=== PATIENT | female | born 1975 | race Caucasian/White ===

== ENCOUNTER 2017-07-14 13:48 | Emergency (ER) | payer OTHER ==
[2017-07-14 13:54] VITALS: BP 133/76; PULSE 93; TEMP 98.8; BMI 25.0
[2017-07-14] MEDS ORDERED: IBUPROFEN 400 MG TABLET (FP) PO ONE ×2 (14:28→14:32)
--- NOTE | 2017-07-14 14:29 | PDOC ---
History of Present Illness - General Chief Complaint: Cold Symptoms Stated Complaint: EAR PROBLEM, COLD SYMPTOMS Time Seen by Provider: 07/14/17 14:02 History Source: Patient Exam Limitations: No Limitations - History of Present Illness Initial Comments: 07/14/17 14:41 Patient here with 2 days of worsening runny nose, congestion, and severe left ear pain. Denies drainage from year however is congested with difficulty hearing. Has used Tylenol for some minimal pain relief. Timing/Duration: reports: changing over time, getting worse Severity: reports: moderate Associated Symptoms: reports: cough, earache, fever/chills, nasal congestion, nasal drainage Past History - Travel Traveled outside of the country in the last 30 days: No Close contact w/someone who was outside of country & ill: No - Past Medical History Allergies/Adverse Reactions: Allergies Allergy/AdvReac Type Severity Reaction Status Date / Time No Known Allergies Allergy Verified 07/14/17 13:51 Home Medications: Ambulatory Orders Amoxicillin - [Amoxicillin 500mg Capsule -] 500 mg PO TID #21 capsule 07/14/17 Ibuprofen [Motrin -] 400 mg PO QID PRN #28 tablet 07/14/17 Anemia: No Asthma: No Cancer: No Cardiac Disorders: No CVA: No COPD: No CHF: No DVT: No Dementia: No Diabetes: No GI Disorders: No Disorders: Yes ("NARROW TUBE") HTN: No Hypercholesterolemia: No Liver Disease: No Seizures: No Thyroid Disease: No - Surgical History Abdominal Surgery: No Appendectomy: No Cardiac Surgery: No Cholecystectomy: No Lung Surgery: No Neurologic Surgery: No Orthopedic Surgery: No - Suicide/Smoking/Psychosocial Hx Smoking Status: No Smoking History: Never smoked Have you smoked in the past 12 months: No Number of Cigarettes Smoked Daily: 0 Information on smoking cessation initiated: No Hx Alcohol Use: Yes Drug/Substance Use Hx: No Substance Use Type: None Hx Substance Use Treatment: No Review of Systems - Review of Systems Able to Perform ROS?: Yes Is the patient limited Serbian proficient: Yes Constitutional: Yes: Symptoms Reported, See HPI, Fever, Malaise, Weakness HEENTM: Yes: Symptoms Reported, See HPI, Ear Pain, Nose Congestion, Throat Pain , Difficulty Swallowing Respiratory: Yes: Symptoms reported, See HPI, Cough Musculoskeletal: No: Symptoms Reported Integumentary: Yes: Symptoms Reported All Other Systems: Reviewed and Negative *Physical Exam - Vital Signs Last Vital Signs Temp Pulse Resp BP Pulse Ox 98.8 F 93 H 18 133/76 100 07/14/17 13:51 07/14/17 13:51 07/14/17 13:51 07/14/17 13:51 07/14/17 13:51 - Physical Exam General Appearance: Yes: Nourished, Appropriately Dressed, Apparent Distress, Mild Distress HEENT: positive: TORO, TMs Normal (left TM bulging, erythematous, and no landmarks visualized. Intact without drainage noted in canal. Right TM is congested but landmarks easily visualized.), Pharyngeal Erythema, Nasal Congestion, Rhinorrhea, Sinus Tenderness, TM Bulging, TM Erythema (left). negative: Normal ENT Inspection, Pharynx Normal, Tonsillar Exudate Neck: positive: Supple. negative: Lymphadenopathy (R), Lymphadenopathy (L) Respiratory/Chest: positive: Lungs Clear, Normal Breath Sounds Cardiovascular: positive: Regular Rate Gastrointestinal/Abdominal: positive: Soft. 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 We'll treat with amoxicillin *DC/Admit/Observation/Transfer Diagnosis at time of Disposition: Otitis media Qualifiers: Otitis media type: suppurative Chronicity: acute Laterality: left Recurrence: not specified as recurrent Spontaneous tympanic membrane rupture: without spontaneous rupture Qualified Code(s): H66.002 - Acute suppurative otitis media without spontaneous rupture of ear drum, left ear - Discharge Dispostion Disposition: HOME Condition at time of disposition: Stable Decision to Admit order: No - Prescriptions Prescriptions: Amoxicillin - [Amoxicillin 500mg Capsule -] 500 mg PO TID #21 capsule Ibuprofen [Motrin -] 400 mg PO QID PRN #28 tablet PRN Reason: Pain - Referrals Referrals: Micky Almanza MD [Primary Care Provider] - - Patient Instructions Printed Discharge Instructions: DI for Viral Upper Respiratory Infection -- Adult Additional Instructions: Rest, drink lots of fluids: Teas, water, soups, Pedialyte Saltwater gargles Steamy showers/seem to face break up mucus Avoid contact with others until fevers and cough resolved Lots of handwashing and good hygiene Continue [id number] medications for symptomatic relief Tylenol or Motrin for fever and pain Followup with private physician in one to 2 days as needed Return to emergency department for worsened symptoms, fevers, dehydration - Post Discharge Activity Forms/Work/School Notes: Back to Work
== END 2017-07-14 14:43 | disposition home or self-care (01) ==
LOC: JERFT 13:48
DX: H66.002 Acute suppurative otitis media without spontaneous rupture of ear drum, left ear (principal); J02.9 Acute pharyngitis, unspecified
CPT/HCPCS: 99281-25

== ENCOUNTER 2020-12-12 23:15 | Emergency (ER) | payer OTHER ==
[2020-12-12 23:24] VITALS: TEMP 98.3; BMI 29.8
[2020-12-13] MEDS ORDERED: IBUPROFEN 600 MG TABLET (FP) PO ONE ×2 (00:07→00:23)
[2020-12-13 01:12] LABS: BASO % 0.4 % (0-2.0); EOS % 1.3 % (0-4.5); HEMATOCRIT 39.7 % (32.4-45.2); HEMOGLOBIN 13.6 GM/dL (10.7-15.3); LYMPH % 21.5 % (8-40); MCHC 34.3 g/dl (32.0-36.0); MEAN CELL VOLUME 90.4 fl (80-96); MEAN PLT VOLUME 10.4 fl (7.5-11.1); MONO % 8.5 % (3.8-10.2); NEUT % 68.3 % (42.8-82.8); PLATELET COUNT 235 10^3/uL (134-434); RBC 4.39 M/mm3 (3.60-5.2); RDW 13.6 % (11.6-15.6); WHITE BLOOD COUNT 12.9 K/mm3 (4.0-10.0)
[2020-12-13 01:47] LABS: CHLORIDE 108 mmol/L (98-107); SODIUM 139 mmol/L (136-145)
[2020-12-13 01:49] LABS: CALCIUM 9.3 mg/dL (8.5-10.1)
[2020-12-13 01:50] LABS: ALBUMIN 3.7 g/dl (3.4-5.0); ANION GAP 9 MMOL/L (8-16); CO2 21 mmol/L (21-32); GLUCOSE,RANDOM 98 mg/dL (74-106)
[2020-12-13 01:53] LABS: CREATININE 0.8 mg/dL (0.55-1.3); SGOT/AST 20 U/L (15-37); SGPT/ALT 27 U/L (13-61)
[2020-12-13 01:55] LABS: BILIRUBIN,TOTAL 0.2 mg/dL (0.2-1); TOT PROT 7.4 g/dl (6.4-8.2)
[2020-12-13 01:56] LABS: ALK PHOS 67 U/L (45-117)
[2020-12-13 02:14] VITALS: BP 144/82; PULSE 76
== END 2020-12-13 02:16 | disposition home or self-care (01) ==
LOC: JER 23:15
DX: R07.89 Other chest pain (principal)
CPT/HCPCS: 36415; 71046-TC-FY; 80053; 84484; 85025; 93005; 93010; 99285-25

== ENCOUNTER 2023-10-20 05:37 | Emergency (ER) | payer OTHER ==
[2023-10-20 05:43] VITALS: BP 137/89; PULSE 63; RESP 18; TEMP 98.6; BMI 28.1
[2023-10-20] MEDS ORDERED: DEXAMETHASONE 4 MG TABLET (FP) ONE (06:28)
[2023-10-20] MEDS ORDERED: FAMOTIDINE 20 MG TABLET ONE (06:29)
[2023-10-20] MEDS: DEXAMETHASONE 4 MG TABLET (FP) PO ONE (06:30)
[2023-10-20] MEDS: FAMOTIDINE 20 MG TABLET PO ONE (06:30)
== END 2023-10-20 07:21 | disposition home or self-care (01) ==
LOC: JER 05:37
DX: R21 Rash and other nonspecific skin eruption (principal)
CPT/HCPCS: 99283-25

== ENCOUNTER 2023-12-07 16:25 | Emergency (ER) | payer OTHER ==
[2023-12-07 16:40] VITALS: BP 108/69; PULSE 71; RESP 18; TEMP 97.6; BMI 30.9
[2023-12-07] MEDS ORDERED: LIDOCAINE HCL 2% JELLY 10 ML CARTRIDGE PR ONE (17:43)
[2023-12-07] MEDS ORDERED: WITCH HAZEL 50% (TUCKS) 40 PAD/JAR PAD TP ONE (17:50)
[2023-12-07] MEDS ORDERED: PHENYLEPHRINE HCL/COCOA BUTTER 1 EACH SUPP.RECT PR ONE (17:54)
== END 2023-12-07 19:02 | disposition home or self-care (01) ==
LOC: JERFT 16:25
DX: K64.4 Residual hemorrhoidal skin tags (principal); K62.89 Other specified diseases of anus and rectum
CPT/HCPCS: 99283-25

== ENCOUNTER 2024-02-08 15:40 | Emergency (ER) | payer OTHER ==
[2024-02-08 15:54] VITALS: BP 133/84; PULSE 108; RESP 16; TEMP 98.7; BMI 29.8
[2024-02-08] MEDS ORDERED: ACETAMINOPHEN INJECTION 100 ML ONE (18:14)
[2024-02-08] MEDS ORDERED: ONDANSETRON 4 MG/2 ML VIAL ONE (18:14)
[2024-02-08] MEDS ORDERED: FAMOTIDINE 20 MG/50 ML IVPB 20 MG/50 ML MG IVPB ONE (18:14)
[2024-02-08 18:54] LABS: BASO % 0.2 % (0-2.0); EOS % 0.2 % (0-4.5); HEMATOCRIT 41.4 % (32.4-45.2); HEMOGLOBIN 14.3 GM/dL (10.7-15.3); MCH 30.9 pg (25.7-33.7); MCHC 34.4 g/dl (32.0-36.0); MEAN CELL VOLUME 89.8 fl (80-96); MEAN PLT VOLUME 10.3 fl (7.5-11.1); NEUT % 82.6 % (42.8-82.8); PLATELET COUNT 234 10^3/uL (134-434); RBC 4.61 M/mm3 (3.60-5.2); RDW 13.8 % (11.6-15.6); WHITE BLOOD COUNT 8.9 K/mm3 (4.0-10.0)
[2024-02-08] MEDS: ONDANSETRON 4 MG/2 ML VIAL IVPUSH ONE (18:55)
[2024-02-08] MEDS: SODIUM CHLORIDE 0.9% 500 ML INFUS.BAG IV ONE (18:55)
[2024-02-08] MEDS: FAMOTIDINE 20 MG/50 ML IVPB 20 MG/50 ML MG IVPB ONE (18:55)
[2024-02-08] MEDS: ACETAMINOPHEN 1000 MG/100 ML BAG IVPB ONE (18:55)
[2024-02-08 19:14] LABS: POTASSIUM 3.7 mmol/L (3.5-5.1)
[2024-02-08 19:18] LABS: ALBUMIN 3.7 g/dl (3.4-5.0); BLOOD UREA NITROGEN 13.6 mg/dL (7-18); MAGNESIUM 1.9 mg/dL (1.8-2.4)
[2024-02-08 19:22] LABS: BILIRUBIN,TOTAL 0.5 mg/dL (0.2-1); TOT PROT 7.4 g/dl (6.4-8.2)
[2024-02-08 20:11] LABS: HIV INTERPRETATION NEGATIVE (NEGATIVE)
[2024-02-08 22:00] LABS: URINE APPEARANCE CLEAR; URINE BILIRUBIN NEGATIVE (NEGATIVE); URINE COLOR YELLOW; URINE GLUCOSE (UA) NEGATIVE (NEGATIVE); URINE KETONE NEGATIVE (NEGATIVE); URINE LEUK ESTERASE NEGATIVE (NEGATIVE); URINE NITRITE NEGATIVE (NEGATIVE); URINE PROTEIN TRACE (NEGATIVE); URINE UROBILINOGEN 0.2 mg/dL (0.2-1.0)
[2024-02-08 22:04] LABS: HCG,QUALITATIVE URINE Negative
== END 2024-02-09 00:40 | disposition home or self-care (01) ==
LOC: JER 15:40
PROC: 3E033GC Introduction of Other Therapeutic Substance into Peripheral Vein, Percutaneous Approach (ICD-10-PCS; principal; 2024-02-08)
PROC: 3E033NZ Introduction of Analgesics, Hypnotics, Sedatives into Peripheral Vein, Percutaneous Approach (ICD-10-PCS; 2024-02-08)
PROC: 3E033GC Introduction of Other Therapeutic Substance into Peripheral Vein, Percutaneous Approach (ICD-10-PCS; 2024-02-08)
DX: K52.9 Noninfective gastroenteritis and colitis, unspecified (principal); R11.2 Nausea with vomiting, unspecified; R50.9 Fever, unspecified; R05.9 Cough, unspecified; Z20.822 Contact with and (suspected) exposure to COVID-19
CPT/HCPCS: 0241U-QW; 36415; 74177-TC; 80053; 81003; 83690; 83735; 84484; 84703; 85025; 86803; 87086; 87389; 93005; 93010; 99285-25; J0131; Q9967